=== PATIENT | female | born 1960 | race Caucasian/White ===

== ENCOUNTER 2020-01-22 17:31 | Emergency (ER) | payer MEDICAID ==
[~2020-01-22] VITALS: Ht 165.1 cm; Wt 56.7 kg
[2020-01-22 18:29] LABS: Basophils # (auto) 0 10 ^3/uL (0-0.2); Basophils % (auto) 0.4 % (0.0-2.0); Eosinophils # (auto) 0.1 10 ^3/uL (0-0.8); Eosinophils % (auto) 0.7 % (0.0-7.0); Hematocrit 42.8 % (36.0-46.0); Hemoglobin 14.3 g/dL (12.2-16.2); Lymphocytes # (auto) 1.2 10 ^3/uL (0.4-5.4); Lymphocytes % (auto) 13.7 % (10.0-50.0); Mean Corpuscular Hemoglobin 28.2 pg (28.0-32.0); Mean Corpuscular Hgb Conc. 33.4 g/dL (32.0-36.0); Mean Corpuscular Volume 84.3 fL (80.0-100.0); Monocytes # (auto) 0.4 10 ^3/uL (0-1.3); Monocytes % (auto) 4.2 % (0.0-12.0); Nucleated Red Blood Cells % 0.2 %; Platelet Count (auto) 291 10^3/uL (140-450); Red Blood Cells 5.07 10^6/uL (4.0-5.20); Red Cell Distribution Width 14.1 % (11.8-14.3); White Blood Cell 8.7 10^3/uL (4.4-10.8)
[2020-01-22 18:39] LABS: Alanine Aminotransferase 25 U/L (13-56); Albumin 4.3 g/dL (3.4-5.0); Anion Gap 5 (5-15); Aspartate Aminotransferase 15 U/L (15-37); BUN/Creatinine Ratio 15.6; Blood Urea Nitrogen 12 mg/dL (7-18); Calcium 9.3 mg/dL (8.5-10.1); Carbon Dioxide 29 mmol/L (21-32); Chloride 105 mmol/L (98-107); GFR African American 98 mL/min; GFR Non-African American 81 mL/min; Glucose 99 mg/dL (74-106); Magnesium 2.3 mg/dL (1.6-2.6); Potassium 3.2 mmol/L (3.5-5.1); Sodium 139 mmol/L (136-145)
[2020-01-22 18:50] LABS: Alkaline Phosphatase 107 U/L (45-117); Bilirubin, Total 0.4 mg/dL (0.2-1.0); Total Protein 9.1 g/dL (6.4-8.2)
[2020-01-22 18:54] VITALS: BP 161/104
[2020-01-22 19:12] LABS: Urine Bacteria NONE SEEN /hpf (None Seen); Urine Blood TRACE /uL (Negative); Urine Specific Gravity 1.004 (1.001-1.035); Urine WBC 5 /hpf (0 - 5)
[2020-01-22] MEDS ORDERED: cloNIDine HCL 0.1 MG TAB PO ONE (19:15)
== END 2020-01-22 21:05 | disposition home or self-care (01) ==
LOC: ER 17:31 → EDBD 17:31 → ER 21:05
DX: I16.0 Hypertensive urgency (principal); N39.0 Urinary tract infection, site not specified; I10 Essential (primary) hypertension
CPT/HCPCS: 36415; 71046; 80053; 81001; 83735; 84484; 85025; 93005

== ENCOUNTER 2022-02-05 22:44 | Emergency (ER) | payer MEDICAID ==
[~2022-02-05] VITALS: Ht 165.1 cm; Wt 56.5 kg
[2022-02-05 23:44] VITALS: BP 153/101
[2022-02-05 23:59] LABS: Urine Bacteria FEW /hpf (None Seen); Urine Blood 3+ /uL (Negative); Urine Mucus FEW (None Seen); Urine Specific Gravity 1.031 (1.001-1.035); Urine WBC 11 /hpf (0 - 5)
[2022-02-06] MEDS ORDERED: HYDROcodone-ACET 5/325MG TAB PO ONE (03:45)
[2022-02-06] MEDS ORDERED: ONDANSETRON ODT 4 MG TAB PO ONE (03:45)
== END 2022-02-06 03:47 | disposition home or self-care (01) ==
LOC: ER 22:44
DX: N75.1 Abscess of Bartholin's gland (principal); N76.2 Acute vulvitis; I10 Essential (primary) hypertension; Z90.49 Acquired absence of other specified parts of digestive tract
CPT/HCPCS: 81001; 99283; Q0162

== ENCOUNTER 2022-02-25 20:28 | Inpatient (IN) | payer MEDICAID ==
[~2022-02-25] VITALS: Ht 162.6 cm; Wt 50.8 kg
[2022-02-25] MEDS ORDERED: metroNIDAZOLE 500MG/100ML 100 ML IV ONE (22:00)
[2022-02-25] MEDS ORDERED: LABETALOL HCL 5 MG/ML 4ML SYRINGE IV ONE (22:00)
[2022-02-25] MEDS ORDERED: cefTRIAXone 1GM/50ML D5W 50 ML IV ONE (22:00)
[2022-02-25 22:12] LABS: Basophils # (auto) 0 10 ^3/uL (0-0.2); Basophils % (auto) 0.2 % (0.0-2.0); Eosinophils # (auto) 0 10 ^3/uL (0-0.8); Eosinophils % (auto) 0.3 % (0.0-7.0); Hematocrit 36.5 % (36.0-46.0); Hemoglobin 12.2 g/dL (12.2-16.2); Lymphocytes # (auto) 0.9 10 ^3/uL (0.4-5.4); Lymphocytes % (auto) 12.2 % (10.0-50.0); Mean Corpuscular Hemoglobin 27.5 pg (28.0-32.0); Mean Corpuscular Hgb Conc. 33.4 g/dL (32.0-36.0); Mean Corpuscular Volume 82.4 fL (80.0-100.0); Monocytes # (auto) 0.2 10 ^3/uL (0-1.3); Monocytes % (auto) 2.9 % (0.0-12.0); Neutrophils % (auto) 84.4 % (37.0-80.0); Nucleated Red Blood Cells % 0.1 %; Red Blood Cells 4.42 10^6/uL (4.0-5.20); Red Cell Distribution Width 14.1 % (11.8-14.3); White Blood Cell 7.1 10^3/uL (4.4-10.8)
[2022-02-25 22:25] LABS: INR 0.97 (0.9-1.15); Partial Thromboplastin Time 31.2 sec (24.6-33.4)
[2022-02-25 22:29] LABS: BUN/Creatinine Ratio 16.9; Calcium 9.6 mg/dL (8.5-10.1); Magnesium 2.1 mg/dL (1.6-2.6); Potassium 3.2 mmol/L (3.5-5.1)
[2022-02-25 22:31] LABS: Bilirubin, Total 0.5 mg/dL (0.2-1.0)
[2022-02-26] MEDS ORDERED: HYDROcodone-ACET 5/325MG TAB PO PRN (00:15)
[2022-02-26] MEDS ORDERED: DOCUSATE SOD 100 MG CAP PO PRN (00:15)
[2022-02-26] MEDS ORDERED: MORPHINE SULFATE INJ 2 MG/ml SYRG IV PRN (00:15)
[2022-02-26] MEDS ORDERED: ONDANSETRON HCL 4 MG/2 ML VIAL IV PRN (00:15)
[2022-02-26] MEDS ORDERED: ACETAMINOPHEN 325 MG TAB PO PRN (00:15)
[2022-02-26] MEDS ORDERED: LORazepam 0.5 MG TAB PO PRN (00:15)
[2022-02-26] MEDS ORDERED: TEMAZEPAM 15 MG CAP PO PRN (00:15)
[2022-02-26] MEDS: SODIUM CHLORIDE 0.9% 1,000 ML IV SCH ×2 (02:00→17:07)
[2022-02-26 03:37] LABS: Urine Bacteria FEW /hpf (None Seen); Urine Blood TRACE /uL (Negative); Urine Specific Gravity 1.007 (1.001-1.035); Urine WBC <1 /hpf (0 - 5)
[2022-02-26 06:22] LABS: Basophils # (auto) 0 10 ^3/uL (0-0.2); Basophils % (auto) 0.4 % (0.0-2.0); Eosinophils # (auto) 0.1 10 ^3/uL (0-0.8); Eosinophils % (auto) 1.2 % (0.0-7.0); Hematocrit 36.6 % (36.0-46.0); Hemoglobin 12.1 g/dL (12.2-16.2); Lymphocytes # (auto) 1.4 10 ^3/uL (0.4-5.4); Lymphocytes % (auto) 20.6 % (10.0-50.0); Mean Corpuscular Hemoglobin 28.1 pg (28.0-32.0); Mean Corpuscular Hgb Conc. 33.2 g/dL (32.0-36.0); Mean Corpuscular Volume 84.6 fL (80.0-100.0); Monocytes # (auto) 0.4 10 ^3/uL (0-1.3); Monocytes % (auto) 5.5 % (0.0-12.0); Neutrophils % (auto) 72.3 % (37.0-80.0); Red Blood Cells 4.32 10^6/uL (4.0-5.20); Red Cell Distribution Width 13.9 % (11.8-14.3); White Blood Cell 6.9 10^3/uL (4.4-10.8)
[2022-02-26 06:28] LABS: BUN/Creatinine Ratio 16.5; Calcium 9.8 mg/dL (8.5-10.1); Potassium 3.6 mmol/L (3.5-5.1)
[2022-02-26 13:00] VITALS: BP 170/90
[2022-02-26] MEDS: hydrALAZINE HCL 20 MG/ML VL IV PRN (18:38)
[2022-02-26 22:00] VITALS: BP 162/87
[2022-02-27 04:48] VITALS: BP 154/81
[2022-02-27] MEDS: hydrALAZINE HCL 20 MG/ML VL IV PRN ×2 (05:53→12:43)
[2022-02-27] MEDS: SODIUM CHLORIDE 0.9% 1,000 ML IV SCH ×2 (06:02→23:11)
[2022-02-27 08:00] VITALS: BP 153/83
[2022-02-27 09:00] VITALS: BP 153/83
[2022-02-27 13:00] VITALS: BP 161/86
[2022-02-27 17:00] VITALS: BP 145/84
[2022-02-27 21:41] VITALS: BP 144/83
[2022-02-28 05:21] VITALS: BP 143/77
[2022-02-28 09:00] VITALS: BP 149/76
[2022-02-28 13:00] VITALS: BP 143/82
[2022-02-28] MEDS: metroNIDAZOLE 500MG/100ML 100 ML IV SCH ×2 (14:04→20:38)
[2022-02-28] MEDS: SODIUM CHLORIDE 0.9% 1,000 ML IV SCH (14:04)
[2022-02-28] MEDS: VANCOMYCIN HCL 125MG/5ML ORAL SOL PO SCH ×3 (14:05→23:55)
[2022-02-28 16:51] VITALS: BP 142/87
[2022-02-28 18:30] VITALS: BP 185/89
[2022-02-28] MEDS: hydrALAZINE HCL 20 MG/ML VL IV PRN (18:31)
[2022-02-28 22:00] VITALS: BP 145/85
[2022-03-01 05:00] VITALS: BP 151/87
[2022-03-01] MEDS: VANCOMYCIN HCL 125MG/5ML ORAL SOL PO SCH ×4 (06:00→19:19)
[2022-03-01] MEDS: metroNIDAZOLE 500MG/100ML 100 ML IV SCH ×3 (06:11→22:18)
[2022-03-01] MEDS: hydrALAZINE HCL 20 MG/ML VL IV PRN ×2 (06:14→19:29)
[2022-03-01 09:00] VITALS: BP 148/88
[2022-03-01] MEDS: SODIUM CHLORIDE 0.9% 1,000 ML IV SCH (11:35)
[2022-03-01 13:00] VITALS: BP 154/88
[2022-03-01 17:00] VITALS: BP 157/82
[2022-03-01] MEDS ORDERED: LISI20TA28 PO (19:22)
[2022-03-01 22:00] VITALS: BP 157/95
[2022-03-01 23:22] VITALS: BP 172/94
[2022-03-02] MEDS: hydrALAZINE HCL 20 MG/ML VL IV PRN ×3 (00:27→12:30)
[2022-03-02 05:00] VITALS: BP 155/91
[2022-03-02] MEDS: metroNIDAZOLE 500MG/100ML 100 ML IV SCH ×2 (05:16→13:29)
[2022-03-02] MEDS: SODIUM CHLORIDE 0.9% 1,000 ML IV SCH (05:17)
[2022-03-02] MEDS: VANCOMYCIN HCL 125MG/5ML ORAL SOL PO SCH ×4 (06:00→11:04)
[2022-03-02 07:45] VITALS: BP 157/92
[2022-03-02 09:00] VITALS: BP 157/92
[2022-03-02] MEDS ORDERED: VANC125PO PO (11:48)
[2022-03-02 12:58] VITALS: BP 160/92
[2022-03-02 14:51] VITALS: BP 160/92
== END 2022-03-02 15:50 | disposition home or self-care (01) | DRG 248 ==
LOC: EDBD 20:28 → ER 20:31 → OVERFLOW 23:22 → WEST WING 02-26 15:21
PROVIDERS: ADMIT Hospitalist; ATTEND Internal Medicine
DX: A04.72 Enterocolitis due to Clostridium difficile, not specified as recurrent (principal); E87.6 Hypokalemia; I10 Essential (primary) hypertension; N75.1 Abscess of Bartholin's gland; Z20.822 Contact with and (suspected) exposure to COVID-19
CPT/HCPCS: 36415; 71045; 74176; 80048; 80053; 81001; 83605; 83735; 83880; 84484; 85025; 85610; 85730; 87040; 87493; 93005; 96365; 96367; 96375; G0378; J0696; J3490

== ENCOUNTER 2024-08-14 15:50 | Inpatient (IN) | payer MEDICAID, OTHER, SELFPAY ==
[~2024-08-14] VITALS: Ht 160 cm; Wt 54.5 kg
[~2024-08-14 15:50] MED LIST: LISI20TA56 PO; VANC125PO PO
--- NOTE | 2024-08-14 16:01 | ED.PDOC ---
HPI Comments 63-year-old female with PMHx HTN presents with a chief complaint of chest pain x 2 weeks intermittently. Patient states that her chest pain is localized to her sternal region, radiates to her back and right shoulder, describes as pressure, and rates her pain a 6/10. Patient mentions that the pain is intermittent in timing. Patient was hypertensive upon arrival at 195/78. Patient mentions that she has not seen a medical provider about this pain in the past x 2 weeks. No ot her symptoms or modifying factors present at this time. Chief Complaint: Chest Pain Time Seen by MD: 15:56 Primary Care Provider: ERIK Reviewed Notes: Medications, Allergies Allergies: Coded Allergies: NO KNOWN ALLERGIES (Unverified , 08/25/14) Home Meds Active Scripts Vancomycin Hcl (Vancomycin Po) 125 Mg So, 125 MG PO Q6HR for 14 Days, #280 ML Prov:RIVERA MORALES MD 03/02/22 Reported Medications Lisinopril (Lisinopril) 20 Mg Tab, 20 MG PO DAILY for 30 Days, MG 03/01/22 Information Source: Patient, Emergency Med Personnel Mode of Arrival: EMS Severity: Moderate Timing: Weeks Duration: Intermittent Prehospital treatment: None Location: Substernal Radiation: Back, Shoulder (R) Quality: Pressure Onset: At Rest Cardiac Risk Factors: HTN PE Risk Factors: None History of: None Past Medical History PAST MEDICAL HISTORY: HTN Surgical History: Appendectomy STRING STUDIES DIRECTOR History: No Pertinent STRING STUDIES DIRECTOR History Family History Family History: Reviewed,noncontributory to illness Social History Smoker: Non-Smoker Alcohol: Denies ETOH Use Drugs: Denies Drug Use Lives In: Home Constitutional: denies: chills, diaphoresis, fatigue, fever, malaise, sweats, weakness, others EENTM: denies: blurred vision, double vision, ear bleeding, ear discharge, ear drainage, ear pain, ear ringing, eye pain, eye redness, hearing loss, mouth pain, mouth swelling, nasal discharge, nose bleeding, nose congestion, nose pain, photophobia, tearing, throat pain, throat swelling, voice changes, others Respiratory: denies: cough, hemoptysis, orthopnea, SOB at rest, shortness of breath, SOB with excertion, stridor, wheezing, others Cardiovascular: reports: chest pain; denies: dizzy spells, diaphoresis, Dyspnea on exertion, edema, irregular heart beat, left arm pain, lightheadedness, palpitations, PND, syncope, others Gastrointestinal: denies: abdomen distended, abdominal pain, blood streaked bowels, constipated, diarrhea, dysphagia, difficulty swallowing, hematemesis, melena, nausea, poor appetite, poor fluid intake, rectal bleeding, rectal pain, vomiting, others Genitourinary: denies: abnormal vagina bleeding, burning, dyspareunia, dysuria, flank pain, frequency, hematuria, incontinence, pain, , vagina discharge, urgency, others Neurological: denies: dizziness, fainting, headache, left sided numbness, left sided weakness, numbness, paresthesia, pre-existing deficit, right sided numbness, right sided weakness, seizure, speech problems, tingling, tremors, weakness, others Musculoskeletal: denies: back pain, gout, joint pain, joint swelling, muscle pain, muscle stiffness, neck pain, others Integumetry: denies: bruises, change in color, change in hair/nails, dryness, laceration, lesions, lumps, rash, wounds, others Allergic/Immunocompromised: denies: Difficulty Healing, Frequent Infections, Hives, Itching, others Hematologic/Lymphatic: denies: anemia, blood clots, easy bleeding, easy bruising, swollen glands, others Endocrine: denies: excessive hunger, excessive sweating, excessive thirst, excessive urination, flushing, intolerance to cold, intolerance to heat, unexplained weight gain, unexplained weight loss, others Psychiatric: denies: anxiety, bipolar disorder, depression, hopeless, panic disorder, schizophrenia, sleepless, suicidal, others All Other Systems: Reviewed and Negative Physical Exam General Appearance: Moderate Distress, Normal HEENT: Normal ENT Inspection, Pharynx Normal, TMs Normal Neck: Full Range of Motion, Non-Tender, Normal, Normal Inspection Respiratory: Chest Non-Tender, Lungs Clear, No Accessory Muscle Use, No Respiratory Distress, Normal Breath Sounds Cardiovascular: No Edema, No JVD, No Murmur, No Gallop, Normal Peripheral Pulses, Regular Rate/Rhythm Breast Exam: Deferred Gastrointestinal: No Organomegaly, Non Tender, No Pulsatile Mass, Normal Bowel Sounds, Soft Genitalia: Deferred Pelvic: Deferred Rectal: Deferred Extremities: No calf tenderness, Normal capillary refill, Normal inspection, Normal range of motion, Non-tender, No pedal edema Musculoskeletal : Apperance: Normal Neurologic: Alert, drop wire hanger II-XII nml as Tested, No Motor Deficits, Normal Affect, Normal Mood, No Sensory Deficits Cerebellar Function: NOT DONE Reflexes: NOT DONE Skin: Dry, Normal Color, Warm Peripheral Pulses: 3+ Radial (R), 3+ Radial (L) Lymphatic: No Adenopathy Was a procedure done? Was a procedure done?: No CP Differential Dx Differential Diagnosis: A-fib, A-Flutter, Angina, Anxiety / Panic Attack, Atrial Dysrhythmia, Electrolyte Disorder X-Ray, Labs, Meds, VS Vital Signs Date Time Temp Pulse Resp B/P (MAP) Pulse Ox O2 Delivery O2 Flow Rate FiO2 08/14/24 15:52 98.4 76 16 198/100 (132) 99 Lab Test 08/14/24 16:25 Range/Units White Blood Count Pending Red Blood Count Pending Hemoglobin Pending Hematocrit Pending Mean Corpuscular Volume Pending Mean Corpuscular Hemoglobin Pending Mean Corpuscular Hemoglobin Concent Pending Red Cell Distribution Width Pending Platelet Count Pending Mean Platelet Volume Pending Neutrophils (%) (Auto) Pending Lymphocytes (%) (Auto) Pending Monocytes (%) (Auto) Pending Basophils (%) (Auto) Pending Neutrophils # (Auto) Pending Lymphocytes # (Auto) Pending Monocytes # (Auto) Pending Sodium Level Pending Potassium Level Pending Chloride Level Pending Carbon Dioxide Level Pending Anion Gap Pending Blood Urea Nitrogen Pending Creatinine Pending Glomerular Filtration Rate Calc Pending BUN/Creatinine Ratio Pending Serum Glucose Pending Calcium Level Pending Magnesium Level Pending Total Bilirubin Pending Aspartate Amino Transferase (AST) Pending Alanine Aminotransferase (ALT) Pending Alkaline Phosphatase Pending Troponin I High Sensitivity Pending Total Protein Pending Albumin Pending Patient alert. Complaining of chest pain for few weeks. Pain is more intense this morning. Vitals stable. Answering all questions. Blood pressure elevated. Was given clonidine. Was given aspirin. Was given nitro. EKG reviewed does not show any acute changes. Echocardiogram. Possibly stress test. Explained to the patient. Continue cardiac monitoring. Time of 1ST Reevaluation: 16:26 Reevaluation 1ST: Unchanged Patient Education/Counseling: Diagnosis, Treatment, Prognosis Family Education/Counseling: Diagnosis, Treatment, Prognosis Departure 1 Departure Time of Disposition: 16:40 Impression: Primary Impression: Chest pain of unknown etiology Additional Impression: Hypertensive emergency Disposition: 09 ADMITTED INPATIENT Admit to: Med Surg Condition: Guarded Critical Care Note Critical Care Time?: Yes (45 min-critical care time only) Critical care comment: Hypotension emergency Stability Stability form required: No Heart Score Heart Score: Heart Score Response (Comments) Value History Slightly Suspicious 0 EKG Normal 0 Age 45-64 1 Risk Factors >3 or Hx ASHD 2 Troponin Normal limit 0 Total 3 I personally scribed for JOEL SCHAFER MD ([email or web address]) on 08/14/24 at 16:01. Electronically submitted by Vernon Johnson [email or web address]). JOEL SCHAFER MD Aug 14, 2024 16:01
[2024-08-14 16:38] LABS: Basophils # (auto) 0 10 ^3/uL (0-0.2); Basophils % (auto) 0.5 % (0.0-2.0); Eosinophils # (auto) 0 10 ^3/uL (0-0.8); Eosinophils % (auto) 0.5 % (0.0-7.0); Hematocrit 41.7 % (36.0-46.0); Hemoglobin 14.1 g/dL (12.2-16.2); Lymphocytes # (auto) 0.9 10 ^3/uL (0.4-5.4); Lymphocytes % (auto) 17.3 % (10.0-50.0); Mean Corpuscular Hemoglobin 28.5 pg (28.0-32.0); Mean Corpuscular Hgb Conc. 33.8 g/dL (32.0-36.0); Mean Corpuscular Volume 84.4 fL (80.0-100.0); Monocytes # (auto) 0.2 10 ^3/uL (0-1.3); Monocytes % (auto) 4.6 % (0.0-12.0); Neutrophils # (auto) 3.9 10 ^3/uL (1.6-8.6); Neutrophils % (auto) 77.1 % (37.0-80.0); Nucleated Red Blood Cells % 0.1 %; Platelet Count (auto) 280 10^3/uL (140-450); Red Blood Cells 4.94 10^6/uL (4.0-5.20); White Blood Cell 5.1 10^3/uL (4.4-10.8)
[2024-08-14] MEDS: ASPirin 325 MG TAB PO ONE (16:47)
[2024-08-14] MEDS: cloNIDine HCL 0.1 MG TAB PO ONE (16:48)
[2024-08-14] MEDS: NITROGLYCERIN 0.4 MG SL TAB SL ONE (16:48)
[2024-08-14 16:52] LABS: Alanine Aminotransferase 17 U/L (7-40); Alkaline Phosphatase 71 U/L (46-116); Anion Gap 9 (5-15); Aspartate Aminotransferase 15 U/L (13-40); BUN/Creatinine Ratio 17.1 (10.0-20.0); Blood Urea Nitrogen 14 mg/dL (9-23); Carbon Dioxide 30 mmol/L (20-31); Chloride 102 mmol/L (98-107); Glucose 97 mg/dL (74-106); Magnesium 1.9 mg/dL (1.6-2.6); Potassium 3.5 mmol/L (3.5-5.1); Sodium 141 mmol/L (136-145)
[2024-08-14 16:53] LABS: Bilirubin, Total 0.5 mg/dL (0.2-1.0); Total Protein 7.9 g/dL (5.7-8.2)
[2024-08-14 16:54] LABS: Albumin 5.1 g/dL (3.2-4.8); Calcium 10.6 mg/dL (8.7-10.4)
--- NOTE | 2024-08-14 17:02 | DVH ---
Procedure: XY CHEST PORTABLE 08/14/2024 04:09 PM Indication: CHEST PAIN Comparison: CHEST PORTABLE on DOS: 02/25/22, CXRP on DOS: 02/25/22 TECHNIQUE: XY CHEST PORTABLE FINDINGS: Medical devices: None. Cardiomediastinal: The heart is normal in size. Pulmonary vasculature is within normal limits. Lungs: No focal pulmonary opacity is seen. The costophrenic angles are clear. No pneumothorax. Bones/soft tissues: No acute abnormality is noted. IMPRESSION: 1. No acute cardiopulmonary disease.
--- NOTE | 2024-08-14 17:03 | ECG ---
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
[2024-08-14] MEDS ORDERED: DOCUSATE SOD 100 MG CAP PO PRN (20:00)
[2024-08-14] MEDS ORDERED: ACETAMINOPHEN 325 MG TAB PO PRN (20:00)
[2024-08-14] MEDS ORDERED: cloNIDine HCL 0.1 MG TAB PO PRN (20:00)
[2024-08-14] MEDS ORDERED: HYDROcodone-ACET 5/325MG TAB PO PRN (20:00)
[2024-08-14] MEDS ORDERED: ONDANSETRON HCL 4 MG/2 ML VIAL IV PRN (20:00)
--- NOTE | 2024-08-14 20:33 | DVHHP2 ---
History of Present Illness Reason for Visit: Hypertensive emergency History of Present Illness The patient is a 63-year-old female with past medical history of hypertension who presented to [facility] ED with complaint of intermittent chest pain for the past 2 weeks. Patient reports symptoms progressively get worse with localized, substernal chest pain, radiating to her back, right shoulder, described as pressure in nature, rating 6/10 numeric scale, getting worse today that prompted this visit. Patient was seen and evaluated in the ED, laboratory data shows WBC 5.1, platelets 280, sodium 141, potassium 3.5, BUN 14, creatinine 0.82, GFR 80, glucose 97, troponin 3, albumin 5.1, blood pressure 198/100, pulse 76, temperature 98.1 F, O2 saturation 94% on room air. Patient was given clonidine 0.2 mg p.o. x1, please see medication orders section in the computer. On my assessment, patient denied chest pain at this moment, no headache, no dizziness, no diaphoresis, no shortness of breaths, no nausea, no vomiting, no fever, no chills. Patient was admitted for further evaluation and medical management. Past Medical History HTN Past Surgical History Appendectomy Family History Reviewed, noncontributory to the management of this case. Past Social History The patient lives at home, denies smoking, alcohol or illicit drugs abuse. Review of Systems Constitutional: No: Fever, Chills, Sweats, Weakness, Malaise, Other Eyes: No: Pain, Vision change, Conjunctivae inflammation, Eyelid inflammation, Other, Redness ENT: No: Ear pain, Ear discharge, Nose pain, Nose discharge, Nose congestion, Mouth pain, Mouth swelling, Throat pain, Throat swelling, Other Respiratory: No: Cough, Dry, Shortness of breath, SOB with excertion, Wheezing, Hemoptysis, Pleuritic Pain, Sputum, Wheezing, Other Cardiovascular: Chest Pain; No: Palpitations, Orthopnea, Paroxysmal Noc. Dyspnea, Edema, Lt Headedness, Other Gastrointestinal: No: Nausea, Vomiting, Abdominal Pain, Diarrhea, Constipation, Melena, Hematochezia, Other Genitourinary: No Dysuria, No Frequency, No Incontinence, No Hematuria, No Retention, No Other Musculoskeletal: No: other, neck pain, shoulder pain, arm pain, back pain, hand pain, leg pain, foot pain Skin: No: Rash, Lesions, Jaundice, Bruising, Other Neurological: No: Weakness, Numbness, Incoordination, Change in speech, Confusion, Seizures, Other Allergies: Coded Allergies: NO KNOWN ALLERGIES (Unverified , 08/25/14) Medications Current Medications Medications Dose Ordered Sig/Marc Route Start Time Stop Time Status Last Admin Dose Admin Amlodipine Besylate 5 mg DAILY PO 08/15/24 10:00 Clonidine HCl 0.1 mg Q4HP PRN PO 08/14/24 20:00 Lisinopril 20 mg DAILY PO 08/15/24 10:00 Aspirin 81 mg DAILY PO 08/15/24 10:00 Sodium Chloride 10 ml Q8HR IV 08/14/24 22:00 Acetaminophen/ Hydrocodone Bitart 1 tab Q4HP PRN PO 08/14/24 20:00 Ondansetron HCl 4 mg Q4HP PRN IV 08/14/24 20:00 Docusate Sodium 100 mg BIDPRN PRN PO 08/14/24 20:00 Acetaminophen 650 mg Q6HP PRN PO 08/14/24 20:00 Exam Vital Signs Vital Signs Date Time Temp Pulse Resp B/P (MAP) Pulse Ox O2 Delivery O2 Flow Rate FiO2 08/14/24 17:01 76 08/14/24 16:50 98.1 20 184/114 (137) 94 98.1 General Appearance: Alert, Oriented X3, Cooperative, No acute distress HEENT: Atraumatic, PERRLA, EOMI, Mucous membr. moist/pink Respiratory: Clear to auscultation, Normal air movement Cardiovascular: Regular rate, Normal S1, Normal S2, No murmurs Abdominal: Normal bowel sounds, Soft, No tenderness, No hepatospenomegaly, No masses Extremities: No clubbing, No cyanosis, No edema, Normal pulses, No tenderness/swelling Skin: No rashes, No breakdown, No significant lesion Neuro: Normal gait, Normal speech, Strength at 5/5 X4 ext, Normal tone, Sensation intact, Cranial nerves 3-12 NL, Reflexes 2+ Psych/Mental Status: Mental status NL, Mood NL Labs/Xrays Labs Test 08/14/24 19:38 08/14/24 16:25 Range/Units Troponin I High Sensitivity 5 </=34 ng/L White Blood Count 5.1 4.4-10.8 10^3/uL Red Blood Count 4.94 4.0-5.20 10^6/uL Hemoglobin 14.1 12.2-16.2 g/dL Hematocrit 41.7 36.0-46.0 % Mean Corpuscular Volume 84.4 80.0-100.0 fL Mean Corpuscular Hemoglobin 28.5 28.0-32.0 pg Mean Corpuscular Hemoglobin Concent 33.8 32.0-36.0 g/dL Red Cell Distribution Width 14.0 11.8-14.3 % Platelet Count 280 140-450 10^3/uL Mean Platelet Volume 7.6 6.9-10.8 fL Neutrophils (%) (Auto) 77.1 37.0-80.0 % Lymphocytes (%) (Auto) 17.3 10.0-50.0 % Monocytes (%) (Auto) 4.6 0.0-12.0 % Eosinophils (%) (Auto) 0.5 0.0-7.0 % Basophils (%) (Auto) 0.5 0.0-2.0 % Neutrophils # (Auto) 3.9 1.6-8.6 10 ^3/uL Lymphocytes # (Auto) 0.9 0.4-5.4 10 ^3/uL Monocytes # (Auto) 0.2 0-1.3 10 ^3/uL Eosinophils # (Auto) 0 0-0.8 10 ^3/uL Basophils # (Auto) 0 0-0.2 10 ^3/uL Nucleated Red Blood Cells 0.1 % Sodium Level 141 136-145 mmol/L Potassium Level 3.5 3.5-5.1 mmol/L Chloride Level 102 98-107 mmol/L Carbon Dioxide Level 30 20-31 mmol/L Anion Gap 9 5-15 Blood Urea Nitrogen 14 9-23 mg/dL Creatinine 0.82 0.550-1.02 mg/dL Glomerular Filtration Rate Calc 80 >90 mL/min BUN/Creatinine Ratio 17.1 10.0-20.0 Serum Glucose 97 74-106 mg/dL Calcium Level 10.6 H 8.7-10.4 mg/dL Magnesium Level 1.9 1.6-2.6 mg/dL Total Bilirubin 0.5 0.2-1.0 mg/dL Aspartate Amino Transferase (AST) 15 13-40 U/L Alanine Aminotransferase (ALT) 17 7-40 U/L Alkaline Phosphatase 71 46-116 U/L Total Protein 7.9 5.7-8.2 g/dL Albumin 5.1 H 3.2-4.8 g/dL PATIENT: EMI WEISST: [id number] UNIT: [id number] : 1960 LOC: ER ROOM / BED: / AGE / SEX: 63 / F ADM STATUS: REG ER SERVICE 1602 ORDERING PHYSICIAN: JOEL SCHAFER MD PROCEDURE(s): CXRP - CHEST PORTABLE REASON: CHEST PAIN ORDER NUMBER(s): [id number], ACCESSION NUMBER(s): [id number] Procedure: XY CHEST PORTABLE 08/14/2024 04:09 PM Indication: CHEST PAIN Comparison: CHEST PORTABLE on DOS: 02/25/22, CXRP on DOS: 02/25/22 TECHNIQUE: XY CHEST PORTABLE FINDINGS: Medical devices: None. Cardiomediastinal: The heart is normal in size. Pulmonary vasculature is within normal limits. Lungs: No focal pulmonary opacity is seen. The costophrenic angles are clear. No pneumothorax. Bones/soft tissues: No acute abnormality is noted. IMPRESSION: 1. No acute cardiopulmonary disease. Assessment/Plan Assessment/Plan Chest pain of unknown etiology Hypertensive emergency Plan 1. Admit to telemetry unit 2. Breathing treatment 3. Pain control management 4. Management of fluids and electrolytes 5. Consultation for hospitalist 6. Diagnostic tests chest x-ray 7. DVT prophylaxis-on aspirin 8. Repeat labs CBC, CMP in a.m. 9. Continue with current medical management 10. Treatment plan discussed with patient and RN. Patient verbalized und erstanding. Plan discussed with: Patient, Other (RN) My Orders Orders - SRINIVASA BECKER DNP Procedure Category Date Status Time Amlodipine Tablet PHA 08/15/24 In Process (Norvasc Tablet) 10:00 Clonidine Hcl Tablet PHA 08/14/24 In Process (Catapres Tablet) 20:00 Lisinopril Tablet PHA 08/15/24 In Process (Zestril Tablet) 10:00 Aspirin Tablet PHA 08/15/24 In Process 10:00 Allergies SHANITA 08/14/24 In Process 19:58 Code Status CODE 08/14/24 Transmitted 19:58 Sodium Chloride Lock PHA 08/14/24 In Process (Saline Lock Ns) 22:00 Oxygen Per Hour RT 08/14/24 Transmitted 19:58 Hydrocodone-Acet PHA 08/14/24 In Process 5/325mg Tab ([place] 20:00 Ondansetron Hcl PHA 08/14/24 In Process (Zofran) 20:00 Docusate Sodium PHA 08/14/24 In Process Capsule (Colace 20:00 Complete Blood Count LAB 08/15/24 Verified 04:00 Comprehensive LAB 08/15/24 Verified Metabolic Panel 04:00 Cardiac DIET 08/15/24 Transmitted Diet-2gna,Lofat,Lochol Breakfast Condition: Serious SHANITA 08/14/24 In Process 19:58 Acetaminophen Tablet PHA 08/14/24 In Process (Tylenol Tablet) 20:00 Bedrest With Bathroom SHANITA 08/14/24 In Process Privileg 19:58 Sequential SHANITA 08/14/24 In Process Compression Device Problem List: (1) Chest pain of unknown etiology (2) Hypertensive emergency Date of Service: Aug 14, 2024 Billing Provider: SRINIVASA BECKER DNP Common Visit Codes: 14727-AFORJCE INP/OBS CARE (HIGH) SRINIVASA BECKER DNP Aug 14, 2024 20:33
[2024-08-14] MEDS: amLODIPine BESYLATE 5 MG TAB PO ONE (20:37)
[2024-08-14 20:39] VITALS: BP 163/103; PULSE 75; RESP 18; TEMP 98.6; O2SAT 97
[2024-08-14] MEDS ORDERED: MORPHINE SULFATE INJ 2 MG/ml SYRG IV PRN (20:45)
[2024-08-14] MEDS ORDERED: NITROGLYCERIN 0.4 MG SL TAB SL PRN (20:45)
[2024-08-14] MEDS ORDERED: SODIUM CHLOR 0.9% PF (SALINE LOCK) 10ML VIAL/SYR IV SCH (22:00)
[2024-08-15] MEDS ORDERED: LISINOPRIL 20 MG TAB PO SCH (10:00)
[2024-08-15] MEDS ORDERED: amLODIPine BESYLATE 5 MG TAB PO SCH (10:00)
[2024-08-15] MEDS ORDERED: ASPirin 81 mg TAB PO SCH (10:00)
--- NOTE | 2024-08-17 10:55 | ECG ---
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
== END 2024-08-14 22:40 | disposition left against medical advice (07) | DRG 305 ==
LOC: EDBD 15:50 → ER 15:50 → EDUNIT# 15:50 → OVERFLOW 20:32
PROVIDERS: ADMIT Nurse Practitioner Family; ATTEND Nurse Practitioner Family
DX: I16.1 Hypertensive emergency (principal); R07.89 Other chest pain; I10 Essential (primary) hypertension; Z79.899 Other long term (current) drug therapy; Z90.49 Acquired absence of other specified parts of digestive tract
CPT/HCPCS: 36415; 71045; 80053; 83735; 84484; 85025; 93005; 99291; G0378

== ENCOUNTER 2025-03-08 11:59 | Inpatient (IN) | payer MEDICARE ==
[~2025-03-08] VITALS: Ht 167.6 cm; Wt 65.0 kg
--- NOTE | 2025-03-08 12:34 | ED.PDOC ---
HPI (NEURO) HPI Comments This is a 64-year-old female with past medical history of hypertension dyslipidemia brought in by EMS to the hospital due to dizziness since 3 days. Per patient, she has not intermittent dizziness and lightheadedness which worsened with mobility. She also reports of palpitation, nausea and blurry vision. She denies fever, chest pain, shortness of breaths, and vomiting. She also reports of fluctuating BP recently, has taken blood pressure at home which is more than 180s. Per EMS, at the scene blood pressure was 185/125. Home meds: Lisinopril and amlodipine Chief Complaint: Dizziness Time Seen by MD: 12:14 Primary Care Provider: ERIK Past Medical History PAST MEDICAL HISTORY: HTN Past Medical History (Other): Hypertension and dyslipidemia Surgical History: Appendectomy HEALTH RECORD TECHNICIAN History: No Pertinent HEALTH RECORD TECHNICIAN History Family History Family History: Reviewed,noncontributory to illness Social History Smoker: Non-Smoker Alcohol: Denies ETOH Use Drugs: Denies Drug Use Lives In: Home Constitutional: reports: weakness; denies: chills, diaphoresis, fatigue, fever, malaise, sweats, others EENTM: denies: blurred vision, double vision, ear bleeding, ear discharge, ear drainage, ear pain, ear ringing, eye pain, eye redness, hearing loss, mouth pain, mouth swelling, nasal discharge, nose bleeding, nose congestion, nose pain, photophobia, tearing, throat pain, throat swelling, voice changes, others Respiratory: denies: cough, hemoptysis, orthopnea, SOB at rest, shortness of breath, SOB with excertion, stridor, wheezing, others Cardiovascular: reports: palpitations; denies: chest pain, dizzy spells, diaphoresis, Dyspnea on exertion, edema, irregular heart beat, left arm pain, li ghtheadedness, PND, syncope, others Gastrointestinal: reports: nausea; denies: abdomen distended, abdominal pain, blood streaked bowels, constipated, diarrhea, dysphagia, difficulty swallowing, hematemesis, melena, poor appetite, poor fluid intake, rectal bleeding, rectal pain, vomiting, others Genitourinary: denies: abnormal vagina bleeding, burning, dyspareunia, dysuria, flank pain, frequency, hematuria, incontinence, pain, , vagina discharge, urgency, others Neurological: reports: dizziness; denies: fainting, headache, left sided numbness, left sided weakness, numbness, paresthesia, pre-existing deficit, right sided numbness, right sided weakness, seizure, speech problems, tingling, tremors, weakness, others Musculoskeletal: denies: back pain, gout, joint pain, joint swelling, muscle pain, muscle stiffness, neck pain, others Integumetry: denies: bruises, change in color, change in hair/nails, dryness, laceration, lesions, lumps, rash, wounds, others Allergic/Immunocompromised: denies: Difficulty Healing, Frequent Infections, Hives, Itching, others Hematologic/Lymphatic: denies: anemia, blood clots, easy bleeding, easy bruising, swollen glands, others Endocrine: denies: excessive hunger, excessive sweating, excessive thirst, excessive urination, flushing, intolerance to cold, intolerance to heat, unexplained weight gain, unexplained weight loss, others Psychiatric: denies: anxiety, bipolar disorder, depression, hopeless, panic disorder, schizophrenia, sleepless, suicidal, others Physical Exam General Appearance: No Apparent Distress, Normal HEENT: Normal ENT Inspection, Pharynx Normal, TMs Normal Neck: Full Range of Motion, Non-Tender, Normal, Normal Inspection Respiratory: Chest Non-Tender, Lungs Clear, No Accessory Muscle Use, No Respiratory Distress, Normal Breath Sounds Cardiovascular: No Edema, No JVD, No Murmur, No Gallop, Normal Peripheral Pulses, Regular Rate/Rhythm Breast Exam: Deferred Gastrointestinal: No Organomegaly, Non Tender, No Pulsatile Mass, Normal Bowel Sounds, Soft Genitalia: Deferred Pelvic: Deferred Rectal: Deferred Extremities: No calf tenderness, Normal capillary refill, Normal inspection, Normal range of motion, Non-tender, No pedal edema Musculoskeletal : Apperance: Normal Neurologic: Alert, high lead yarder II-XII nml as Tested, No Motor Deficits, Normal Affect, Normal Mood, No Sensory Deficits Cerebellar Function: Normal Reflexes: Normal Skin: Dry, Normal Color, Warm Lymphatic: No Adenopathy EKG EKG : Comments Normal saline Pseudomonas significant ST or T-wave changes Was a procedure done? Was a procedure done?: No Differential Diagnosis (SZ) Seizure: CVA/TIA X-Ray, Labs, Meds, VS Vital Signs Date Time Temp Pulse Resp B/P (MAP) Pulse Ox O2 Delivery O2 Flow Rate FiO2 9/15/25 16:00 76 03/08/25 14:00 67 17 171/87 (115) 94 03/08/25 12:50 75 18 93 Room Air* 0 21 03/08/25 12:45 72 03/08/25 12:45 202/108 03/08/25 12:45 202/108 03/08/25 12:37 97.4 75 18 205/105 (138) 93 97.4 03/08/25 12:18 72 03/08/25 12:18 72 03/08/25 12:10 98.5 76 17 187/125 96 98.5 Lab Test 03/08/25 13:14 03/08/25 12:37 Range/Units White Blood Count 9.7 4.4-10.8 10^3/uL Red Blood Count 4.95 4.0-5.20 10^6/uL Hemoglobin 14.4 12.2-16.2 g/dL Hematocrit 41.5 36.0-46.0 % Mean Corpuscular Volume 83.7 80.0-100.0 fL Mean Corpuscular Hemoglobin 29.1 28.0-32.0 pg Mean Corpuscular Hemoglobin Concent 34.8 32.0-36.0 g/dL Red Cell Distribution Width 14.6 H 11.8-14.3 % Platelet Count 300 140-450 10^3/uL Mean Platelet Volume 7.7 6.9-10.8 fL Neutrophils (%) (Auto) 89.5 H 37.0-80.0 % Lymphocytes (%) (Auto) 7.1 L 10.0-50.0 % Monocytes (%) (Auto) 3.2 0.0-12.0 % Eosinophils (%) (Auto) 0.0 0.0-7.0 % Basophils (%) (Auto) 0.2 0.0-2.0 % Neutrophils # (Auto) 8.7 H 1.6-8.6 10 ^3/uL Lymphocytes # (Auto) 0.7 0.4-5.4 10 ^3/uL Monocytes # (Auto) 0.3 0-1.3 10 ^3/uL Eosinophils # (Auto) 0 0-0.8 10 ^3/uL Basophils # (Auto) 0 0-0.2 10 ^3/uL Nucleated Red Blood Cells 0.1 % Sodium Level 141 136-145 mmol/L Potassium Level 2.8 L 3.5-5.1 mmol/L Chloride Level 98 98-107 mmol/L Carbon Dioxide Level 30 20-31 mmol/L Anion Gap 13 5-15 Blood Urea Nitrogen 13 9-23 mg/dL Creatinine 0.93 0.550-1.02 mg/dL Glomerular Filtration Rate Calc 68 >90 mL/min BUN/Creatinine Ratio 14.0 10.0-20.0 Serum Glucose 110 H 74-106 mg/dL Calcium Level 9.9 8.7-10.4 mg/dL Total Bilirubin 0.7 0.2-1.0 mg/dL Aspartate Amino Transferase (AST) 26 13-40 U/L Alanine Aminotransferase (ALT) 24 7-40 U/L Alkaline Phosphatase 78 46-116 U/L Troponin I High Sensitivity 6 </=34 ng/L Total Protein 8.2 5.7-8.2 g/dL Albumin 4.8 3.2-4.8 g/dL Urine Color Light-yellow Yellow Urine Clarity Clear Clear Urine pH 6.0 5.0-9.0 Urine Specific [place] 1.011 1.001-1.035 Urine Protein Negative Negative Urine Ketones Negative Negative Urine Blood 1+ H Negative /uL Urine Nitrite Negative Negative Urine Bilirubin Negative Negative Urine Urobilinogen Normal Negative mg/dL Urine Leukocyte Esterase Negative Negative /uL Urine RBC 3 0 - 4 /hpf Urine Microscopic WBC 2 0-5 /HPF Urine Squamous Epithelial Cells Few <5 /hpf Urine Bacteria None seen None Seen /hpf Urine Glucose Normal Normal mg/dL Current Medications Medications (Trade) Dose Ordered Sig/Macr Route Start Time Stop Time Status Last Admin Amlodipine Besylate (Norvasc Tablet) 10 mg ONCE ONCE PO 03/08/25 12:30 03/08/25 12:31 DC 03/08/25 12:45 Lisinopril (Zestril Tablet) 10 mg ONCE ONCE PO 03/08/25 12:30 03/08/25 12:31 DC 03/08/25 12:45 Atorvastatin Calcium (Lipitor) 80 mg ONCE ONCE PO 03/08/25 12:30 03/08/25 12:31 DC 03/08/25 12:45 Meclizine HCl (Antivert Tablet) 12.5 mg ONCE ONCE PO 03/08/25 12:30 03/08/25 12:31 DC 03/08/25 12:45 Time of 1ST Reevaluation: 17:31 Reevaluation 1ST: Unchanged Patient Education/Counseling: Diagnosis, Treatment, Prognosis, Need For Follow Up Family Education/Counseling: No Family Present Comments Patient came to the hospital due to dizziness. Blood pressure was high Head CT scan performed, showed no significant intracranial abnormalities. Patient was given amlodipine atorvastatin, and lisinopril On subsequent check abdominal patient was feeling the same. Patient will be admitted in hospital for further workup and management. Departure 1 Departure Time of Disposition: 17:32 Impression: Primary Impression: Dizziness Additional Impression: Posterior circulation stroke Disposition: ADMITTED INPATIENT Admit to: Tele Condition: Guarded Critical Care Note Critical Care Time?: Yes (55 min-critical care time only) Stability Stability form required: No Heart Score Heart Score: Heart Score Response (Comments) Value History N/A 0 EKG Normal 0 Age >65 2 Risk Factors 1 or 2 risk factors 1 Troponin N/A 0 Total 3 FADI JACOBO Mar 08, 2025 12:34
[2025-03-08] MEDS: ATORVASTATIN 20 MG TAB PO ONE (12:45)
[2025-03-08] MEDS: MECLIZINE HCL 25 MG TAB PO ONE (12:45)
[2025-03-08] MEDS: LISINOPRIL 5 MG TAB PO ONE (12:45)
[2025-03-08] MEDS: ATORVASTATIN 20 MG TAB ONE (12:47)
[2025-03-08] MEDS: LISINOPRIL 5 MG TAB ONE (12:47)
[2025-03-08] MEDS: MECLIZINE HCL 25 MG TAB ONE (12:48)
[2025-03-08 12:50] VITALS: PULSE 75; RESP 18; O2SAT 93
--- NOTE | 2025-03-08 13:00 | ECG ---
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
--- NOTE | 2025-03-08 13:26 | DVH ---
EXAM: CT HEAD WITHOUT CONTRAST INDICATION: dizziiness TECHNIQUE: CT of the head without intravenous contrast. Radiation Dose Information: CT Dose: CTDI volume is 25 mGy. Dose-length product is 250 mGy*cm The dose indicators for CT are the volume Computed Tomography (CT) Dose Index (CTDIvol) and the Dose Length Product (DLP), and are measured in units of mGy and mGy-cm, respectively. These indicators are not patient dose, but values generated from the CT scanner acquisition factors. The report includes radiation exposure data for exposures received during this examination. COMPARISON: None FINDINGS: There is no evidence of acute intracranial hemorrhage, extra-axial collection, mass effect, midline s hift, herniation or hydrocephalus. The ventricles, sulci and cisterns are age appropriate. The james-white differentiation is intact. Patchy periventricular and subcortical white matter hypoattenuation is nonspecific but may be related to small vessel ischemic disease. The visualized paranasal sinuses and mastoid air cells are clear. The surrounding soft tissues and osseous structures are unremarkable. IMPRESSION: No acute intracranial abnormality.
[2025-03-08 13:47] LABS: Hematocrit 41.5 % (36.0-46.0); Hemoglobin 14.4 g/dL (12.2-16.2); Mean Corpuscular Hemoglobin 29.1 pg (28.0-32.0); Mean Corpuscular Volume 83.7 fL (80.0-100.0); Nucleated Red Blood Cells % 0.1 %
[2025-03-08 14:12] LABS: Urine Protein, UAD Negative (Negative)
[2025-03-08 14:48] LABS: Alanine Aminotransferase 24 U/L (7-40); Alkaline Phosphatase 78 U/L (46-116); Anion Gap 13 (5-15); BUN/Creatinine Ratio 14.0 (10.0-20.0); Bilirubin, Total 0.7 mg/dL (0.2-1.0); Blood Urea Nitrogen 13 mg/dL (9-23); Calcium 9.9 mg/dL (8.7-10.4); Carbon Dioxide 30 mmol/L (20-31); Chloride 98 mmol/L (98-107); Sodium 141 mmol/L (136-145)
[2025-03-08 14:49] LABS: Albumin 4.8 g/dL (3.2-4.8); Glucose 110 mg/dL (74-106); Potassium 2.8 mmol/L (3.5-5.1); Total Protein 8.2 g/dL (5.7-8.2)
[2025-03-08 19:30] VITALS: PULSE 76; RESP 16; O2SAT 97
[2025-03-08] MEDS ORDERED: ATOR20TA50 PO (22:11)
--- NOTE | 2025-03-08 22:12 | DVHHPRES ---
History of Present Illness Resident Creating Document: CHRISTY CHILDRESS RESIDENT History of Present Illness Annelise Snow is a 64 year old female with past medical history of hypertension, Dyslipidemia who came to the ED with Chief complaints of Lightheadness, nausea, palpitations, blurry vision and dizziness, and patient states that her blood pressure has been fluctuating since 3 days. She denies any fall, headaches, vomiting, fever, chills, chest pain, shortness of breath, diarrhea. Patient states that she does feel anxious, depressed and has lost 10 lbs in the past 6 months. Patient takes lisinopril and amlodipine at home but still states that her systolic blood pressure is greater than 170. Patient is admitted for further management. Past surgical history: Appendectomy Family history: Reviewed, noncontributory Personal history: Denies smoking, drinking, drug use Lives with: Family PCP: Dr. Becker Review of Systems Constitutional: Yes: Other (Dizziness); No: Fever, Chills, Sweats, Weakness, Malaise Eyes: No: Pain, Vision change, Conjunctivae inflammation, Eyelid inflammation, Other, Redness ENT: No: Ear pain, Ear discharge, Nose pain, Nose discharge, Nose congestion, Mouth pain, Mouth swelling, Throat pain, Throat swelling, Other Respiratory: No: Cough, Dry, Shortness of breath, SOB with excertion, Wheezing, Hemoptysis, Pleuritic Pain, Sputum, Wheezing, Other Cardiovascular: Palpitations; No: Chest Pain, Orthopnea, Paroxysmal Noc. Dyspnea, Edema, Lt Headedness, Other Gastrointestinal: Nausea; No: Vomiting, Abdominal Pain, Diarrhea, Constipation, Melena, Hematochezia, Other Genitourinary: No Dysuria, No Frequency, No Incontinence, No Hematuria, No Retention, No Other Musculoskeletal: No: other, neck pain, shoulder pain, arm pain, back pain, hand pain, leg pain, foot pain Skin: No: Rash, Lesions, Jaundice, Bruising, Other Neurological: No: Weakness, Numbness, Incoordination, Change in speech, Confusion, Seizures, Other Allergies: Coded Allergies: NO KNOWN ALLERGIES (Unverified , 08/25/14) Exam Vital Signs Vital Signs Date Time Temp Pulse Resp B/P (MAP) Pulse Ox O2 Delivery O2 Flow Rate FiO2 03/08/25 20:00 97.9 77 19 147/88 (107) 94 97.9 03/08/25 19:30 Room Air* 0 21 Exam General: Patient alert and oriented in person, place and time. Patient following commands. HEENT: Normocephalic, atraumatic, moist mucous membranes Respiratory/pulmonary: Clear lungs bilaterally, vesicular murmurs present in almost all lung [place], no associated crackles or wheezes. Cardiovascular: Normal heart sounds S1 and S2 with no associated murmurs Abdomen: Abdomen nondistended, there is no pain to palpation in any of the abdominal quadrants, no palpable masses. Extremities: There is no peripheral edema present at the lower extremities. Peripheral Pulses: 3+ Radial (R). 3+ Radial (L). 3+ Dorsalis pedis (R). 3+ Dorsalis pedis(L) Skin: No rashes or pruritus, there is no sacral edema present at this time. Neurological: Intact cranial nerves with no focal neurologic deficits Psych/mood: Anxious, depressed Labs/Xrays Labs Test 03/08/25 13:14 03/08/25 12:37 Range/Units White Blood Count 9.7 4.4-10.8 10^3/uL Red Blood Count 4.95 4.0-5.20 10^6/uL Hemoglobin 14.4 12.2-16.2 g/dL Hematocrit 41.5 36.0-46.0 % Mean Corpuscular Volume 83.7 80.0-100.0 fL Mean Corpuscular Hemoglobin 29.1 28.0-32.0 pg Mean Corpuscular Hemoglobin Concent 34.8 32.0-36.0 g/dL Red Cell Distribution Width 14.6 H 11.8-14.3 % Platelet Count 300 140-450 10^3/uL Mean Platelet Volume 7.7 6.9-10.8 fL Neutrophils (%) (Auto) 89.5 H 37.0-80.0 % Lymphocytes (%) (Auto) 7.1 L 10.0-50.0 % Monocytes (%) (Auto) 3.2 0.0-12.0 % Eosinophils (%) (Auto) 0.0 0.0-7.0 % Basophils (%) (Auto) 0.2 0.0-2.0 % Neutrophils # (Auto) 8.7 H 1.6-8.6 10 ^3/uL Lymphocytes # (Auto) 0.7 0.4-5.4 10 ^3/uL Monocytes # (Auto) 0.3 0-1.3 10 ^3/uL Eosinophils # (Auto) 0 0-0.8 10 ^3/uL Basophils # (Auto) 0 0-0.2 10 ^3/uL Nucleated Red Blood Cells 0.1 % Sodium Level 141 136-145 mmol/L Potassium Level 2.8 L 3.5-5.1 mmol/L Chloride Level 98 98-107 mmol/L Carbon Dioxide Level 30 20-31 mmol/L Anion Gap 13 5-15 Blood Urea Nitrogen 13 9-23 mg/dL Creatinine 0.93 0.550-1.02 mg/dL Glomerular Filtration Rate Calc 68 >90 mL/min BUN/Creatinine Ratio 14.0 10.0-20.0 Serum Glucose 110 H 74-106 mg/dL Calcium Level 9.9 8.7-10.4 mg/dL Total Bilirubin 0.7 0.2-1.0 mg/dL Aspartate Amino Transferase (AST) 26 13-40 U/L Alanine Aminotransferase (ALT) 24 7-40 U/L Alkaline Phosphatase 78 46-116 U/L Troponin I High Sensitivity 6 </=34 ng/L Total Protein 8.2 5.7-8.2 g/dL Albumin 4.8 3.2-4.8 g/dL Urine Color Light-yellow Yellow Urine Clarity Clear Clear Urine pH 6.0 5.0-9.0 Urine Specific [place] 1.011 1.001-1.035 Urine Protein Negative Negative Urine Ketones Negative Negative Urine Blood 1+ H Negative /uL Urine Nitrite Negative Negative Urine Bilirubin Negative Negative Urine Urobilinogen Normal Negative mg/dL Urine Leukocyte Esterase Negative Negative /uL Urine RBC 3 0 - 4 /hpf Urine Microscopic WBC 2 0-5 /HPF Urine Squamous Epithelial Cells Few <5 /hpf Urine Bacteria None seen None Seen /hpf Urine Glucose Normal Normal mg/dL SEPSIS Sepsis Screen Date sepsis recognized/suspect: Mar 08, 2025 Time Sepsis recognized/suspect: 1929 Recent Procedure: No On Antibiotic Therapy: No Respiratory Rate >20: No Heart Rate >90: No Temp<36 C (96.8 F) or >38.3 C: No SBP <90 or MAP <65 mmHG: No New Acute Mental Status Change: No Is the patient on CPAP, BIPAP,: No Physician Orders Admit (03/08/25 22:02) Allergies (03/08/25 22:02) Complete Blood Count (03/09/25 04:00) Comprehensive Metabolic Panel (03/09/25 04:00) Echo 2d Mode Cardiac Dop (03/08/25 22:02) Condition: Serious (03/08/25 22:02) Acetaminophen Tablet (Tylenol Tablet) (03/08/25 22:15) Bedrest With Bathroom Privileg (03/08/25 22:02) Potassium Effervesent Tab (Klor-Con/Ef) (03/08/25 22:15) Vitamin B12 (03/08/25 22:05) Folate (Folic Acid) (03/08/25 22:05) Electrocardigram (03/08/25 22:05) Troponin-I Hs (03/08/25 22:05) Orthostatic Vital Signs (03/08/25 22:05) Carotid Duplx W Color Dop (03/08/25 22:05) Vital Signs Date Time Temp Pulse Resp B/P (MAP) Pulse Ox O2 Delivery O2 Flow Rate FiO2 03/08/25 20:00 97.9 77 19 147/88 (107) 94 97.9 03/08/25 19:30 76 16 97 Room Air* 0 21 03/08/25 18:00 71 18 161/91 (114) 94 03/08/25 16:00 76 03/08/25 16:00 75 18 166/92 (116) 94 Laboratory Tests Test 03/08/25 13:14 White Blood Count 9.7 10^3/uL (4.4-10.8) Medications Medications Dose Ordered Sig/Marc Route Start Time Stop Time Status Last Admin Dose Admin Amlodipine Besylate 10 mg ONCE ONCE PO 03/08/25 12:30 03/08/25 12:31 DC 03/08/25 12:45 10 MG Aspirin 81 mg ONCE ONCE PO 03/08/25 17:45 03/08/25 17:46 DC 03/08/25 17:54 81 MG Atorvastatin Calcium 80 mg ONCE ONCE PO 03/08/25 12:30 03/08/25 12:31 DC 03/08/25 12:45 80 MG Lisinopril 10 mg ONCE ONCE PO 03/08/25 12:30 03/08/25 12:31 DC 03/08/25 12:45 10 MG Meclizine HCl 12.5 mg ONCE ONCE PO 03/08/25 12:30 03/08/25 12:31 DC 03/08/25 12:45 12.5 MG Assessment/Plan Assessment/Plan Assessment and Plan # hypertensive urgency # Presyncope - head CT showed No acute intracranial abnormality. - carotid Doppler showed no stenosis - echo ordered, pending - EKG WNL - vitamin B12 - folate -Carotid Doppler: WNL - troponin WNL - BNP - continue home meds # hypokalemia - replaced, monitor labs # dyslipidemia - continue home meds # anxiety # Depression - continue home meds PPI PPX: Protonix DVT PPX: not indicated Goals of care addressed with the patient for more than 33 minutes: Full code status Case discussed with Dr. Red , patient and nurse Plan discussed with: Patient My Orders Orders - CHRISTY CHILDRESS Procedure Category Date Status Time Admit ADMIT 03/08/25 Transmitted 22:02 Allergies SHANITA 03/08/25 In Process 22:02 Complete Blood Count LAB 03/09/25 Verified 04:00 Comprehensive LAB 03/09/25 Verified Metabolic Panel 04:00 Echo 2d Mode Cardiac US 03/08/25 Logged DOP 22:02 Condition: Serious SHANITA 03/08/25 In Process 22:02 Acetaminophen Tablet PHA 03/08/25 In Process (Tylenol Tablet) 22:15 Bedrest With Bathroom SHANITA 03/08/25 In Process Privileg 22:02 Potassium Effervesent PHA 03/08/25 Transmitted Tab (Klor-Con/Ef) 22:15 Vitamin B12 LAB 03/08/25 Transmitted 22:05 Folate (Folic Acid) LAB 03/08/25 Transmitted 22:05 Electrocardigram EKG 03/08/25 Logged 22:05 Troponin-I Hs LAB 03/08/25 Transmitted 22:05 Orthostatic Vital ORDERS 03/08/25 Transmitted Signs 22:05 Carotid Duplx W Color US 03/08/25 Logged DOP 22:05 Date of Service: Mar 08, 2025 Billing Provider: YAZ RED MD Common Visit Codes: 96723-[id number] INP/OBS CARE (HIGH) Secondary Visit Codes: [id number]-[id number] CARE PLAN 30 MINUTES CHRISTY CHILDRESS Mar 08, 2025 22:12
[2025-03-08] MEDS ORDERED: ACETAMINOPHEN 325 MG TAB PO PRN (22:15)
[2025-03-08] MEDS: POTASSIUM EFFERVESENT TAB 25 MEQ PO ONE (22:32)
--- NOTE | 2025-03-08 22:46 | DVH ---
Carotid Duplex Date: 03/08/2025 10:25 PM Clinical History: presyncopy Comparison: None Technique: Duplex Doppler evaluation of the extracranial carotid and vertebral arteries including col or Doppler and spectral/pulsed waveform analysis was performed. Findings: RIGHT SIDE: The peak systolic velocities are 68 cm/s in the distal CCA and 67 cm/s in the proximal ICA.The ICA/CC A ratio is less than 1. The external carotid artery is patent with peak systolic velocity of 59 cm/s proximally. There is appropriate antegrade flow in the right vertebral artery. LEFT SIDE: The peak systolic velocities are 69 cm/s in the distal CCA and 84 cm/s in the proximal ICA.. The ICA/ CCA ratio is less than 1. The external carotid artery is patent with peak systolic velocity of 75 cm/s proximally. There is appropriate antegrade flow in the left vertebral artery. IMPRESSION: 1. No hemodynamically significant stenosis noted in the right carotid system. 2. No hemodynamically significant stenosis noted in the left carotid system. 3. Reference: Radiology 2003; 229:340-34
[2025-03-08 23:41] LABS: Barbiturate Scree,Urine Neg (NEGATIVE)
[2025-03-08 23:43] LABS: Amphetamine Screen, Urine Neg (NEGATIVE); Benzodiazephine Screen, Urine Neg (NEGATIVE); Cannabinoid Screen, Urine Neg (NEGATIVE); Cocaine Screen, Urine Neg (NEGATIVE); Opiate Scree,Urine Neg (NEGATIVE); Phencyclidine Screen, Urine Neg (NEGATIVE)
[2025-03-08 23:45] LABS: INR 1.01 (0.9-1.15); Prothrombin Time 10.7 sec (9.3-11.8)
[2025-03-09 06:06] LABS: Hematocrit 39.8 % (36.0-46.0); Hemoglobin 13.7 g/dL (12.2-16.2); Mean Corpuscular Hemoglobin 28.6 pg (28.0-32.0); Mean Corpuscular Volume 83.3 fL (80.0-100.0); Nucleated Red Blood Cells % 0.1 %
[2025-03-09 06:22] LABS: Alanine Aminotransferase 17 U/L (7-40); Albumin 4.2 g/dL (3.2-4.8); Alkaline Phosphatase 68 U/L (46-116); Anion Gap 11 (5-15); BUN/Creatinine Ratio 17.5 (10.0-20.0); Blood Urea Nitrogen 14 mg/dL (9-23); Calcium 9.5 mg/dL (8.7-10.4); Chloride 99 mmol/L (98-107); Glucose 91 mg/dL (74-106); Sodium 143 mmol/L (136-145); Total Protein 7.3 g/dL (5.7-8.2)
[2025-03-09 06:23] LABS: Bilirubin, Total 0.8 mg/dL (0.2-1.0)
[2025-03-09 06:24] LABS: Carbon Dioxide 33 mmol/L (20-31); Potassium 3.0 mmol/L (3.5-5.1)
[2025-03-09] MEDS: POTASSIUM EFFERVESENT TAB 25 MEQ PO ONE (07:10)
[2025-03-09 07:25] VITALS: PULSE 79; RESP 16; O2SAT 95
[2025-03-09] MEDS: LISINOPRIL 20 MG TAB PO SCH (10:50)
[2025-03-09] MEDS: PANTOPRAZOLE 40 MG/10 ML VIAL INJ IV SCH (10:50)
[2025-03-09 13:00] VITALS: BP 175/109; PULSE 93; RESP 20; TEMP 98.2; O2SAT 96
[2025-03-09] MEDS ORDERED: AMLO1TAB22 PO (13:44)
[2025-03-09] MEDS ORDERED: LABETALOL HCL 20 MG/4 ML VL IV PRN (16:00)
--- NOTE | 2025-03-09 16:23 | DVHPN2 ---
Subjective Patient denies any symptoms Reviewed: Care Plan, H&P, Labs, Medications Changes from previous H/P or p: No Changes General: Per HPI Eyes: No Pain, No Vision change, No Conjunctivae inflammation, No Eyelid inflammation, No Other, No Redness ENT: No Ear pain, No Ear discharge, No Nose pain, No Nose discharge, No Nose congestion, No Mouth pain, No Mouth swelling, No Throat pain, No Throat swelling, No Other Cardiovascular: No Chest Pain; Palpitations; No Orthopnea, No Paroxysmal Noc. Dyspnea, No Edema, No Lt Headedness, No Other Respiratory: No Cough, No Dry, No Shortness of breath, No SOB with excertion, No Wheezing, No Hemoptysis, No Pleuritic Pain, No Sputum, No Other Gastrointestinal: Nausea; No Vomiting, No Abdominal Pain, No Diarrhea, No Constipation, No Melena, No Hematochezia, No Other Genitourinary: No Dysuria, No Frequency, No Incontinence, No Hematuria, No Retention, No Other Musculoskeletal: No other, No neck pain, No shoulder pain, No arm pain, No back pain, No hand pain, No leg pain, No foot pain Skin: No Rash, No Lesions, No Jaundice, No Bruising, No Other Objective Vitals Vital Signs Date Time Temp Pulse Resp B/P (MAP) Pulse Ox O2 Delivery O2 Flow Rate FiO2 03/09/25 12:15 Room Air* 0 21 03/09/25 12:00 75 03/09/25 11:25 20 152/93 (112) 95 03/09/25 07:25 98.0 98.0 General Appearance: Alert, Oriented X3, Cooperative HEENT: Atraumatic, PERRLA Cardiovascular: Normal S1, Normal S2 Neuro: Normal gait, Normal speech Skin: Dry, Intact Psych/Mental Status: Mental status NL, Mood NL Medications Current Medications Medications Dose Ordered Sig/Marc Route Start Time Stop Time Status Last Admin Dose Admin Acetaminophen 650 mg Q6HP PRN PO 03/08/25 22:15 Lisinopril 20 mg DAILY PO 03/09/25 10:00 03/09/25 10:50 20 MG Atorvastatin Calcium 40 mg HS PO 03/09/25 22:00 Pantoprazole Sodium 40 mg DAILY IV 03/09/25 10:00 03/09/25 10:50 40 MG Labetalol HCl 10 mg Q2HPRN PRN IV 03/09/25 16:00 UNV Laboratory Results Laboratory Tests 03/09/25 05:31 Chemistry Test 03/09/25 05:31 Albumin 4.2 g/dL (3.2-4.8) Calcium Level 9.5 mg/dL (8.7-10.4) Total Protein 7.3 g/dL (5.7-8.2) Coagulation Test 03/08/25 23:05 Prothrombin Time 10.7 sec (9.3-11.8) Prothrombin Time INR 1.01 (0.9-1.15) D-Dimer, Quantitative 0.43 mg/L FEU (0.0-0.49) Cardiac Markers Test 03/09/25 06:31 B-Type Natriuretic Peptide 21.87 pg/mL (0-100) LFT Test 03/09/25 05:31 Alanine Aminotransferase (ALT) 17 U/L (7-40) Alkaline Phosphatase 68 U/L (46-116) Aspartate Amino Transferase (AST) 20 U/L (13-40) Total Bilirubin 0.8 mg/dL (0.2-1.0) HgA1c, TSH Test 03/09/25 05:31 Thyroid Stimulating Hormone (TSH) Pending Urinalysis Test 03/08/25 12:37 Urine Color Light-yellow (Yellow) Urine Clarity Clear (Clear) Urine pH 6.0 (5.0-9.0) Urine Specific [place] 1.011 (1.001-1.035) Urine Protein Negative (Negative) Urine Ketones Negative (Negative) Urine Blood 1+ /uL (Negative) H Urine Nitrite Negative (Negative) Urine Bilirubin Negative (Negative) Urine Urobilinogen Normal mg/dL (Negative) Urine Leukocyte Esterase Negative /uL (Negative) Urine RBC 3 /hpf (0 - 4) Urine Microscopic WBC 2 /HPF (0-5) Urine Squamous Epithelial Cells Few /hpf (<5) Urine Bacteria None seen /hpf (None Seen) Urine Glucose Normal mg/dL (Normal) Labs and/or images reviewed: Labs reviewed by me, Image(s) reviewed by me Assessment/Plan Assessment/Plan Impression: -hyperkalemia -accelerated hypertension -near-syncope -CVA ruled out Plan: -echocardiogram pending -CT scan of head negative -carotid Doppler study negative -continue antihypertensives -check TSH Reassess for discharge in a.m. Total time spent with patient discussing and formulating plan of care: 35 minutes. This medical document was created using an electronic medical record system with [employer] dictation system. Although this document has been carefully reviewed, there may still be some phonetic and typographical errors. These areas are purely typographical due to imperfections of the software programs, and do not reflect any compromise in the patient's medical care. Plan discussed with: Patient, Other (RN) My Orders Orders - ALE CEDILLO NP Procedure Category Date Status Time Cardiac DIET 03/09/25 Transmitted Diet-2gna,Lofat,Lochol Dinner Thyroid Stimulating LAB 03/09/25 In Process Hormone 15:53 Labetalol Hcl PHA 03/09/25 Logged (Labetalol Hcl) 16:00 Date of Service: Mar 09, 2025 Billing Provider: ALE CEDILLO NP Common Visit Codes: [id number] INP/OBS CARE(HIGH) ALE CEDILLO NP Mar 09, 2025 16:22
[2025-03-09 16:50] VITALS: BP 146/99; PULSE 88; RESP 18; TEMP 98.4; O2SAT 95
[2025-03-09 20:00] VITALS: PULSE 85; PULSE 87; O2SAT 94
[2025-03-09 21:00] VITALS: BP 146/91; PULSE 85; RESP 17; TEMP 98.3; O2SAT 94
[2025-03-09] MEDS: ATORVASTATIN 20 MG TAB PO SCH (21:25)
[2025-03-10 01:00] VITALS: BP 131/83; PULSE 73; RESP 16; TEMP 97.7; O2SAT 93
[2025-03-10 05:00] VITALS: BP 134/87; PULSE 78; RESP 17; TEMP 97.4; O2SAT 96
[2025-03-10 08:00] VITALS: PULSE 60
[2025-03-10 09:00] VITALS: BP 140/85; PULSE 72; RESP 16; TEMP 98; O2SAT 95
--- NOTE | 2025-03-10 09:37 | DVHSR ---
APPROVED REPORT EXAM: Two-dimensional and M-mode echocardiogram with Doppler and color Doppler. Blood Pressure: 131/75 mmHg INDICATION Rule out structural heart disease RISK FACTORS Height: 5'6", Weight: 143 DIMENSIONS LVDd3.0 (3.8-5.7cm)LA (2D)3.1 (1.9-4.0cm)Aortic Root3.2 (2.0-3.7cm) LVDs2.0 (2.5-4.0cm)LA (MM) (1.9-4.0cm)Aortic Cusp Exc1.6 (1.5-2.0cm) EF (%) 65.0 (55-70%)Rt. Atrium3.6 (1.9-4.0cm)Asc. Aorta cm IVSd1.1 (0.7-1.1cm)RV (D) (1.8-2.4cm) PWd0.8 (0.7-1.1cm) Mitral Valve MitralMitral Stenosis E wave0.54m/sMV Mean GR.mmHg A wave0.78m/sMV Peak GR.mmHg E/A ratio0.72D MVAcm2 DECEL [id number] 1/2 [place] Aortic Valve Aortic ValveAortic Stenosis V11.16m/Yin Mean GR.4mmHg V21.30m/Yin Peak GR.7mmHg LVOT Diameter2.0 (1.8-2.4cm)Doppler AVA2.80cm2 Pulmonic Valve V21.07m/s Tricuspid Valve TR Velocity2.84m/s [id number] Conclusion LV EF IS 70% MILD LVH AND MILD LV DIASTOLIC DYSFUNCTION MILD MVP NORMAL TV,PV AND AORTIC VALVE NO EFFUSION
[2025-03-10 12:41] VITALS: BP 130/92; PULSE 80; RESP 16; TEMP 98.2; O2SAT 94
--- NOTE | 2025-03-10 13:29 | DVHDS2 ---
Discharge Summary Date of Admission Mar 08, 2025 at 22:02 Date of Discharge: Mar 10, 2025 Admitting Diagnosis Hypertensive urgency Labs/Diagnostic Data: Laboratory Results Test 03/09/25 06:31 03/09/25 05:31 03/08/25 23:05 03/08/25 22:38 B-Type Natriuretic Peptide 21.87 pg/mL (0-100) White Blood Count 6.9 10^3/uL (4.4-10.8) Red Blood Count 4.78 10^6/uL (4.0-5.20) Hemoglobin 13.7 g/dL (12.2-16.2) Hematocrit 39.8 % (36.0-46.0) Mean Corpuscular Volume 83.3 fL (80.0-100.0) Mean Corpuscular Hemoglobin 28.6 pg (28.0-32.0) Mean Corpuscular Hemoglobin Concent 34.3 g/dL (32.0-36.0) Red Cell Distribution Width 14.2 % (11.8-14.3) Platelet Count 258 10^3/uL (140-450) Mean Platelet Volume 7.6 fL (6.9-10.8) Neutrophils (%) (Auto) 72.2 % (37.0-80.0) Lymphocytes (%) (Auto) 19.5 % (10.0-50.0) Monocytes (%) (Auto) 6.9 % (0.0-12.0) Eosinophils (%) (Auto) 1.1 % (0.0-7.0) Basophils (%) (Auto) 0.3 % (0.0-2.0) Neutrophils # (Auto) 5.0 10 ^3/uL (1.6-8.6) Lymphocytes # (Auto) 1.3 10 ^3/uL (0.4-5.4) Monocytes # (Auto) 0.5 10 ^3/uL (0-1.3) Eosinophils # (Auto) 0.1 10 ^3/uL (0-0.8) Basophils # (Auto) 0 10 ^3/uL (0-0.2) Nucleated Red Blood Cells 0.1 % Sodium Level 143 mmol/L (136-145) Potassium Level 3.0 mmol/L (3.5-5.1) Chloride Level 99 mmol/L (98-107) Carbon Dioxide Level 33 mmol/L (20-31) Anion Gap 11 (5-15) Blood Urea Nitrogen 14 mg/dL (9-23) Creatinine 0.80 mg/dL (0.550-1.02) Glomerular Filtration Rate Calc 82 mL/min (>90) BUN/Creatinine Ratio 17.5 (10.0-20.0) Serum Glucose 91 mg/dL (74-106) Calcium Level 9.5 mg/dL (8.7-10.4) Total Bilirubin 0.8 mg/dL (0.2-1.0) Aspartate Amino Transferase (AST) 20 U/L (13-40) Alanine Aminotransferase (ALT) 17 U/L (7-40) Alkaline Phosphatase 68 U/L (46-116) Total Protein 7.3 g/dL (5.7-8.2) Albumin 4.2 g/dL (3.2-4.8) Thyroid Stimulating Hormone (TSH) 2.59 uIU/mL (0.55-4.78) Prothrombin Time 10.7 sec (9.3-11.8) Prothrombin Time INR 1.01 (0.9-1.15) D-Dimer, Quantitative 0.43 mg/L FEU (0.0-0.49) Troponin I High Sensitivity 9 ng/L (</=34) Vitamin B12 Level 707 pg/mL (211-911) Folic Acid 22.47 ng/mL (>5.38) Test 03/08/25 12:37 Urine Color Light-yellow (Yellow) Urine Clarity Clear (Clear) Urine pH 6.0 (5.0-9.0) Urine Specific [place] 1.011 (1.001-1.035) Urine Protein Negative (Negative) Urine Ketones Negative (Negative) Urine Blood 1+ /uL (Negative) Urine Nitrite Negative (Negative) Urine Bilirubin Negative (Negative) Urine Urobilinogen Normal mg/dL (Negative) Urine Leukocyte Esterase Negative /uL (Negative) Urine RBC 3 /hpf (0 - 4) Urine Microscopic WBC 2 /HPF (0-5) Urine Squamous Epithelial Cells Few /hpf (<5) Urine Bacteria None seen /hpf (None Seen) Urine Glucose Normal mg/dL (Normal) Urine Opiates Screen Neg (NEGATIVE) Urine Fentanyl Screen Neg (NEGATIVE) Urine Barbiturates Screen Neg (NEGATIVE) Urine Phencyclidine Screen Neg (NEGATIVE) Urine Amphetamines Screen Neg (NEGATIVE) Urine Benzodiazepines Screen Neg (NEGATIVE) Urine Cocaine Screen Neg (NEGATIVE) Urine Cannabinoids Screen Neg (NEGATIVE) Other Laboratory Tests 03/09/25 05:31 Brief Hx & Hospital Course: History of Present Illness Annelise Snow is a 64 year old female with past medical history of hypertension, Dyslipidemia who came to the ED with Chief complaints of Lightheadness, nausea, palpitations, blurry vision and dizziness, and patient states that her blood pressure has been fluctuating since 3 days. She denies any fall, headaches, vomiting, fever, chills, chest pain, shortness of breath, diarrhea. Patient states that she does feel anxious, depressed and has lost 10 lbs in the past 6 months. Patient takes lisinopril and amlodipine at home but still states that her systolic blood pressure is greater than 170. Patient is admitted for further management. Course of hospitalization: Patient's blood pressure has improved with oral antihypertensives. CT scan of the head is negative for any acute pathology. Echocardiogram with normal ejection fraction, noted diastolic heart failure. No significant valvular disease. Carotid Doppler study negative for any flow-limiting stenosis. Patient's symptoms have improved. Medication reconciliation was performed, for which patient was restarted on her home medications. Patient was instructed to be compliant with her medications. She is to follow up with her PCP in 1-2 weeks. All questions answered. Physical examination General: Alert and Oriented x3. No acute distress. Well-nourished. Eyes: EOMI. Anicteric. HENT: Moist mucous membranes. Lungs: Clear to auscultation bilaterally. No accessory muscle use. Cardiovascular: Regular rate and rhythm. No murmur. No JVD. Abdomen: Soft, non-tender and non-distended. No palpable masses. Extremities: No edema. Non-tender. Skin: No rashes or lesions. Warm. Neurologic: No focal neurological deficits. CN II-XII grossly intact, but not individually tested. Psychiatric: Cooperative. Appropriate mood and affect. Total time spent with patient discussing and formulating plan of care: 35 minutes. This medical document was created using an electronic medical record system with [employer] dictation system. Although this document has been carefully reviewed, there may still be some phonetic and typographical errors. These areas are purely typographical due to imperfections of the software programs, and do not reflect any compromise in the patient's medical care. Condition at Discharge: Fair Final Diagnosis/Problems List Hypertensive crisis -hypokalemia -accelerated hypertension -near-syncope -CVA ruled out Discharge Disposition: Home Discharge Instruct/Medications Diet: Cardiac 2g Na,low cholest Activity: No Restrictions, As Tolerated Follow Up/Referral: PCP in 1-2 weeks Medications: Continue all previous home medications. Patient instructed to be compliant with taking her amlodipine in addition to her other antihypertensives to control her blood pressure. Scheduled Amlodipine Besylate (Amlodipine Besylate), 5 MG PO HS, (Reported) Lisinopril (Lisinopril), 20 MG PO DAILY, (Reported) Vancomycin Hcl (Vancomycin Po), 125 MG PO Q6HR Miscellaneous Medications Atorvastatin Calcium (Atorvastatin Calcium), 1 TAB PO, (Reported) 36 Discharge Statement: "Patient was advised to return to the ER or call 911 if any headaches, dizziness, shortness of breath, chest pain, abdominal pain, bleeding, fevers, or worsening of medical condition. Patient was counseled about treatment plan, medications, possible side effects, patientverbalized understanding. All questions were answered to the best of my ability. This discharge took greater then 30 minutes in planning, reviewing documentation, counseling the patient, and discussing with other team members." ASSESSMENT ASSESSMENT Assessment Hypertensive crisis Date of Service: Mar 10, 2025 Billing Provider: ALE CEDILLO NP Common Visit Codes: 42436-OTM/OBS DISCH DAY >30min ALE CEDILLO NP Mar 10, 2025 13:29
[2025-03-10 17:02] VITALS: BP 155/90; PULSE 82; RESP 17; TEMP 98.6; O2SAT 96
== END 2025-03-10 17:35 | disposition home or self-care (01) | DRG 641 ==
LOC: EDBD 11:59 → ER 11:59 → OVERFLOW 22:02 → TELE-EAST 03-09 12:33
PROVIDERS: ADMIT Nurse Practitioner Acute Care; ATTEND Nurse Practitioner Acute Care
DX: E87.6 Hypokalemia (principal); I16.9 Hypertensive crisis, unspecified; I50.32 Chronic diastolic (congestive) heart failure; E78.5 Hyperlipidemia, unspecified; F41.9 Anxiety disorder, unspecified; F32.A Depression, unspecified; I11.0 Hypertensive heart disease with heart failure; Z90.49 Acquired absence of other specified parts of digestive tract
CPT/HCPCS: 36415; 70450; 80053; 80307; 81001; 82607; 82746; 83880; 84443; 84484; 85025; 85379; 85610; 93005; 93306; 93886; 99291; G0378; J2470